=== PATIENT | male | born 1975 | race Caucasian/White ===

== ENCOUNTER 2022-04-17 11:26 | Outpatient (CLI) | payer OTHER, SELFPAY ==
[2022-04-17 09:52] LABS: Albumin* 4.5 g/dL (3.3-5.0); Chloride* 100 mmol/L (96-114); Potassium* 4.1 mmol/L (3.6-5.1); Sodium* 136 mmol/L (135-149)
[2022-04-17 09:54] LABS: Cholesterol* 166 mg/dL (90-199); Creatinine* 1.1 mg/dL (0.5-1.5); Estimated Glomerular Filt Rate 84 ml/min
[2022-04-17 09:55] LABS: Alanine Aminotransferase* 21 U/L (4-50); Alkaline Phosphatase* 71 U/L (40-150); Aspartate Amino Transferase* 24 U/L (12-35); Bilirubin Total* 0.9 mg/dL (0.1-1.5); Blood Urea Nitrogen* 16 mg/dL (5-24); Carbon Dioxide* 32 mmol/L (20-32); Glucose* 88 mg/dL (60-115); Total Protein* 6.9 g/dL (6.0-8.3); Triglycerides* 133 mg/dL (40-149)
[2022-04-17 09:56] LABS: Calcium* 9.3 mg/dL (8.4-10.6); HDL Cholesterol* 51 mg/dL (>=40); LDL Cholesterol Calculated 88 mg/dL (<100)
== END 2022-04-17 11:27 | disposition home or self-care (01) ==
PROVIDERS: PCP Family Medicine; Visit Provider Family Medicine
DX: Z00.00 Encounter for general adult medical examination without abnormal findings (principal); Z13.6 Encounter for screening for cardiovascular disorders
CPT/HCPCS: 80053; 80061

== ENCOUNTER 2022-09-13 08:49 | Emergency (ER) | payer BC, SELFPAY ==
[2022-09-13] VITALS (12 sets, daily range): BP systolic 105–115; BP diastolic 67–85; PULSE 55–68; RESP 18; TEMP 36.7; O2SAT 95–99; BMI 26.4
--- NOTE | 2022-09-13 08:52 | ED.ARRPALP ---
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 Patient states that he has really been increasing his activity over the last 6 weeks. He notes that over the last 2 weeks he has been experiencing episodes of a fluttering in his chest or skipped heartbeat associated with some lightheadedness. He states that this happened last night at he was he was trying to get up from the couch and at that time also had some tunnel vision and shortness of breath. He is still able to exercise in states that he has no chest pain when this occurs. He has not had any unusual weight loss or night sweats and no problems with thyroid in the past. He has not had any recent fever cough or cold. He has not taken any recent antihistamines. He does not smoke. Дмитрий notes that in his 20s he did have an episode of at tachycardia with arrhythmia while participating in an indoor triathlon. He states that prior to that he had taken an energy drink. He did not have any post event care. He does note an EKG that was normal prior to his service in the [employer]. Patient denies any recent calf pain tenderness history of DVT recent travel. Related Data Home Medications Medication Instructions Recorded Confirmed No Known Home Medications 04/07/22 09/13/22 Allergies Allergy/AdvReac Type Severity Reaction Status Date / Time No Known Drug Allergies Allergy Verified 09/13/22 09:05 Review of Systems Status of ROS: Reports: 10 or more systems reviewed and unremarkable except as noted in History and below Const: Denies: fever, chills, change in weight or night sweats Eyes: Reports: other (Tunneling of vision but not complete loss with events) ENMT: Denies: throat pain, neck pain or difficulty swallowing Cardio: Reports: palpitations and lightheadedness; Denies: chest pain, edema or swelling of feet/ankles GI: Denies: abdominal pain, nausea, vomiting or difficulty swallowing Musculo: Denies: back pain, neck pain, extremity pain or extremity swelling Neuro: Denies: headache, numbness in extremities or weakness in extremities PFSH [facility] Social History Smoking Status: Never smoker Do you use any of these nicotine containing products: None Second hand tobacco smoke exposure: No How often do you have a drink containing alcohol: 2-4 times a month How many standard drinks containing alcohol do you have on a typical day: 1 or 2 How often do you have six or more drinks on one occasion: Never AUDIT-C Alcohol total score: 2 Non-prescribed substance use: denies use Little interest or pleasure in doing things: several days Feeling down, depressed, or hopeless: not at all service: Yes Exam Narrative: Exam Narrative: Alert and oriented. Well-spoken gentleman mentating normally. Head is atraumatic normocephalic. Heart is with bradycardic rate and rhythm. I do not auscultate murmur, rub or clicks. Lungs are clear in all lung couch. No pain with percussion over CVA. Abdomen soft nontender. Lower extremities with no evidence of edema. Homans sign is negative. Calves are nontender. Const: Vital Signs, click to edit/add: Vital Signs - 24 hr 09/13/22 08:53 09/13/22 09:22 09/13/22 09:23 Temperature 98.1 F Pulse Rate 57 L 63 Pulse Rate [Right Pulse Oximeter] 55 L Respiratory Rate 18 Blood Pressure 112/83 Blood Pressure [Ri ght Upper Arm] 115/70 Pulse Oximetry 98 97 97 Oxygen Delivery Me thod Room Air 09/13/22 09:30 09/13/22 09:32 09/13/22 09:33 Temperature Pulse Rate 62 60 68 Pulse Rate [Right Pulse Oximeter] Respiratory Rate Blood Pressure 105/73 Blood Pressure [Ri ght Upper Arm] Pulse Oximetry 97 95 97 Oxygen Delivery Me thod 09/13/22 09:45 09/13/22 10:00 09/13/22 10:01 Temperature Pulse Rate 62 58 L 60 Pulse Rate [Right Pulse Oximeter] Respiratory Rate Blood Pressure 105/67 Blood Pressure [Ri ght Upper Arm] Pulse Oximetry 97 98 97 Oxygen Delivery Me thod 09/13/22 10:15 09/13/22 10:30 09/13/22 10:32 Temperature Pulse Rate 65 60 60 Pulse Rate [Right Pulse Oximeter] Respiratory Rate Blood Pressure 105/85 Blood Pressure [Ri ght Upper Arm] Pulse Oximetry 97 97 99 Oxygen Delivery Me thod Documenting provider has reviewed patient's vital signs: yes Course Course Hospital Course: Differential diagnosis includes but is not limited to thyroid disease, vitamin-D deficiency, PE, low magnesium, frequent PVC, arrhythmia. Patient will be on classroom monitor in have EKG accomplished. Will check labs to include CBC, basic, magnesium, TSH, D-dimer, vitamin-D, troponin. Will also include chest x-ray. Vital Signs Vital signs: Initial Vital Signs Temperature 98.1 F 09/13/22 08:53 Temperature Source Temporal Artery Scan 09/13/22 08:53 Pulse Rate 55 L 09/13/22 08:53 Respiratory Rate 18 09/13/22 08:53 Blood Pressure 115/70 09/13/22 08:53 Blood Pressure Mean 85 09/13/22 08:53 Blood Pressure Position Sitting 09/13/22 08:53 Pulse Oximetry 98 09/13/22 08:53 Oxygen Delivery Method Room Air 09/13/22 08:53 Vital Signs Temperature 98.1 F 09/13/22 08:53 Pulse Rate 55 L 09/13/22 08:53 Respiratory Rate 18 09/13/22 08:53 Blood Pressure 115/70 09/13/22 08:53 Pulse Oximetry 98 09/13/22 08:53 Oxygen Delivery Method Room Air 09/13/22 08:53 Temperature 98.1 F 09/13/22 08:53 Pulse Rate 60 09/13/22 10:32 Respiratory Rate 18 09/13/22 08:53 Blood Pressure 105/85 09/13/22 10:32 Pulse Oximetry 99 09/13/22 10:32 Oxygen Delivery Method Room Air 09/13/22 08:53 MDM - Arrhythmia/Palpitations MDM Narrative Medical decision making narrative: 1. Symptomatic PVC-patient had no evidence of arrhythmia or PVC during his time in the ER today. However, he is certainly describing a PVC issue over the last 2 weeks. I have ordered a 48 hour Holter monitor. Will have patient follow-up with Dr. Juvencio moss or his primary for at the end of this week. I think that it would be hernandez to also have him undergo a stress echo with his symptoms. He is very active and fortunately no evidence of acute coronary event today with a negative troponin and reassuring EKG. Further, magnesium is within normal limits as is TSH and vitamin-D. Chest x-ray without any unusual findings. At this time recommending follow-up with primary MD at the end of this week. Would also schedule for stress echo at some point. 2. Mild leukopenia-no recent illnesses. Would recommend recheck in 1 month 3. Disposition-home at this time. Return to the emergency room for onset of new symptoms or worsening symptoms. Medical Records Attestation: I reviewed the patient's medical records. Lab Data Attestation: I reviewed the patient's lab results. Labs: Lab Results 09/13/22 Range/Units 09:30 WBC 3.91 L (4.50-11.00) K/uL RBC 5.06 (4.30-5.90) m/uL Hgb 14.7 (13.5-17.5) gm/dL Hct 43.1 (37.0-53.0) % MCV 85 (80-100) fL MCH 29 (26-34) pg MCHC 34 (32-36) gm/dL RDW Coeff of Yulissa 12.6 (11.5-15.5) % Plt Count 198 (140-440) K/uL Neut % (Auto) 48.0 (42.0-72.0) % Lymph % (Auto) 38.1 (20-44) % Wharton % (Auto) 8.2 (0.0-11.0) % Eos % (Auto) 4.9 (0.0-7.0) % Baso % (Auto) 0.5 (0.0-3.0) % Neut # (Auto) 1.90 (1.7-7.0) K/uL Lymph # (Auto) 1.50 (0.90-2.90) K/uL Wharton # (Auto) 0.30 (0.00-0.90) K/UL Eos # (Auto) 0.20 (0.00-0.50) K/uL Baso # (Auto) 0.00 (0.00-0.30) K/uL D-Dimer Quant (PE/DVT) < 0.27 (0.00-0.50) ug/ml Sodium 137 (135-149) mmol/L Potassium 4.1 (3.6-5.1) mmol/L Chloride 106 (96-114) mmol/L Carbon Dioxide 27 (20-32) mmol/L BUN 22 (5-24) mg/dL Creatinine 1.0 (0.5-1.5) mg/dL Estimated Creat Clear 104.31 Estimated GFR 94 ml/min Glucose 92 (60-115) mg/dL Calcium 8.8 (8.4-10.6) mg/dL Magnesium 2.0 (1.5-2.6) mg/dL Troponin I < 0.01 L (0.01-0.04) ng/mL C-Reactive Protein 0.5 (0.5-1.0) mg/dL 25-OH Vitamin D Total 47 (30-80) ng/mL TSH 0.995 (0.270-4.200) uIU/mL Imaging Data Chest x-ray: Attestation: I have reviewed the pertinent imaging results. My impression: No acute infiltrates or evidence of a widened mediastinum Radiologist's impression: Cardiovasculature and mediastinum:? Heart size and vasculature are normal in caliber and appearance.? Lungs and pleural spaces:? Lungs are clear.? No sign of infiltrate or mass. ?No sign of pleural effusion.? No pneumothorax.? Bones and soft tissues:? No significant findings. IMPRESSION: No acute or significant findings. ECG Data Attestation: I personally reviewed and interpreted this ECG as follows: ECG interpretation date: 09/13/22 Interpretation: Sinus rhythm at a rate of 60. No acute ST or T-wave changes are noted. Normal QT and OR interval. Discharge Plan Discharge Clinical Impression: Symptomatic PVCs Patient Disposition: Home, Self-Care Condition: Unchanged Additional Instructions: 1. Holter monitor for 48 hours. Follow-up with Dr. Luis. 2. Return to the emergency room for worsening symptoms Prescriptions: No Action No Known Home Medications Follow Up/Referrals: Gerald Nails MD [Primary Care Provider] - Stand Alone Forms: [employer] Info Instructions
--- NOTE | 2022-09-13 09:16 | CRLHL7_ITS ---
For Patients: As a result of the Century Cures Act, medical imaging exams and procedure reports are released immediately into your electronic medical record. You may view this report before your referring provider. If you have questions, please contact your health care provider. INDICATION: Palpitations. TECHNIQUE: Chest 1 views. COMPARISON: None. FINDINGS: Cardiovasculature and mediastinum: Heart size and vasculature are normal in caliber and appearance. Lungs and pleural spaces: Lungs are clear. No sign of infiltrate or mass. No sign of pleural effusion. No pneumothorax. Bones and soft tissues: No significant findings. IMPRESSION: No acute or significant findings. Dictated by Jorge Grady MD @ 09/13/2022 10:01:03 AM (Electronically Signed)
[2022-09-13 09:41] LABS: Basophils Percent Auto 0.5 % (0.0-3.0); Eosinophils Percent Auto 4.9 % (0.0-7.0); Hematocrit 43.1 % (37.0-53.0); Hemoglobin* 14.7 gm/dL (13.5-17.5); Immature Granulocytes Pct Auto 0.3 %; Lymphocytes Percent Auto 38.1 % (20-44); Mean Corpuscular HGB Conc 34 gm/dL (32-36); Mean Corpuscular Hemoglobin 29 pg (26-34); Mean Corpuscular Volume 85 fL (80-100); Monocytes Percent Auto 8.2 % (0.0-11.0); Platelet Count* 198 K/uL (140-440); RDW Coefficient of Variation % 12.6 % (11.5-15.5); Red Blood Count 5.06 m/uL (4.30-5.90); White Blood Count* 3.91 K/uL (4.50-11.00)
[2022-09-13 09:43] LABS: Slide Review Reflex No
[2022-09-13 09:55] LABS: Chloride* 106 mmol/L (96-114)
[2022-09-13 09:56] LABS: Potassium* 4.1 mmol/L (3.6-5.1); Sodium* 137 mmol/L (135-149)
[2022-09-13 09:58] LABS: Est. Creatinine Clearance* 104.31; Estimated Glomerular Filt Rate 94 ml/min
[2022-09-13 09:59] LABS: Blood Urea Nitrogen* 22 mg/dL (5-24); Carbon Dioxide* 27 mmol/L (20-32)
[2022-09-13 10:00] LABS: Calcium* 8.8 mg/dL (8.4-10.6); Glucose* 92 mg/dL (60-115)
[2022-09-13 10:02] LABS: C Reactive Protein* 0.5 mg/dL (0.5-1.0)
[2022-09-13 10:08] LABS: D Dimer Quantitative* < 0.27 ug/ml (0.00-0.50)
[2022-09-13 10:15] LABS: Troponin I* < 0.01 ng/mL (0.01-0.04)
[2022-09-13 10:17] LABS: Vitamin D 25 Hydroxy* 47 ng/mL (30-80)
[2022-09-13 10:30] LABS: TSH With Reflex to FT4* 0.995 uIU/mL (0.270-4.200)
== END 2022-09-13 10:54 | disposition home or self-care (01) ==
LOC: ED 09:52
PROVIDERS: Emergency Provider Family Medicine; PCP Family Medicine
DX: I49.3 Ventricular premature depolarization (principal); D72.819 Decreased white blood cell count, unspecified
CPT/HCPCS: 36415; 71045; 80048; 82306; 83735; 84443; 84484; 85025; 85379; 86140; 93005; 93225; 93226; 99284; 99285

== ENCOUNTER 2022-10-08 13:57 | Outpatient (CLI) | payer BC, SELFPAY | END 2022-10-08 13:58 | disposition home or self-care (01) | LOC: RAD 13:58 | PROVIDERS: PCP Family Medicine; Visit Provider Internal Medicine | DX: I49.3 Ventricular premature depolarization (principal) | CPT/HCPCS: 93306 ==

== ENCOUNTER 2023-11-25 12:39 | Outpatient (CLI) | payer BC, SELFPAY ==
--- OUTSIDE RECORDS SUMMARY | 2023-11-25 12:43 | XMS_ITS | Clinical Summary ---
Author Organization [facility] Address [place], [place] [address] Care Team Providers [employer] Person Name Role Phone Gerald Nails MD Primary Care Provider [phone] Allergies No known active allergies Medications Medication Sig Dispensed Refills Start Date End Date Status meloxicam (MOBIC) 7.5 mg tablet TK 1 T PO D 2 04/27/2018 Active azithromycin (Zithromax Z-Jovanny) 250 mg tabletIndications:Bro nchitis Take 500 mg today and then 250 mg days 2-5 6 Tablet 10/30/2021 Active predniSONE (DELTASONE) 20 mg tabletIndications:Bro nchitis Take 2 tablets Or 40 mg daily 10 Tablet 10/30/2021 Active promethazine-codeine (PHENERGAN WITH CODEINE) 6.25-10 mg/5 mL syrupIndications:Bron chitis Take 5 mL by mouth every 6 hours if needed for Cough. 118 mL 10/30/2021 Active Active Problems Problem Noted Date Diagnosed Date Prostate nodule 05/25/2018 Prostate nodule 05/25/2018 Social History Tobacco Use Types Packs/Day Years Used Date Smoking Tobacco: Never Smokeless Tobacco: Never Tobacco Cessation:Counseling Given: Yes Alcohol Use Standard Drinks/Week Comments Yes 0 (1 standard drink = 0.6 oz pur e alcohol) Social Connections Answer Date Recorded Frequency of Communication with Friends and Fami ly Not on file 10/30/2021 Sex and Gender Information Value Date Recorded Sex Assigned at Not on file Gender Identity Not on file Sexual Orientation Not on file Obstetrics History Last Filed Vital Signs Vital Sign Reading Time Taken Comments Blood Pressure 130/77 10/30/2021 7:39 AM CDT Pulse 62 10/30/2021 7:39 AM CDT Temperature - - Respiratory Rate 16 05/17/2019 1:52 PM INTAKE COORDINATOR Oxygen Saturation 98% 10/30/2021 7:3 9 AM CDT Inhaled Oxygen Concentration - - Weight 97.7 kg (215 lb 6.4 oz) 05/17/2019 1:52 PM INTAKE COORDINATOR Pt weighed with shoes on. Height - - Body Mass Index - - Plan of Treatment Upcoming Encounters Date Type Department Care Team (Late st Contact Info) Description 11/25/2023 1:00 PM CDT Ancillary Procedure [facility] [address] [facility] [place] [address] Health Maintenance Due Date Last Done Comments Tdap 1987 Depression screening for age 12+ 1988 HIV for age 15-65 1991 BMI (ht and wt on same day) for age 18+ 1994 Hepatitis C screening for ag e 18-79 1994 Tetanus booster 1996 Colonoscopy through age 75 2021 Lipids for age 45-75 2021 COVID-19 vaccine series (2022-24 season) 2023 Influenza for age 9-49 02/13/2024 Pneumococcal series for age 6-64 Aged Out No longer eligible based on patient's age to complete this topic Care Teams [employer] Person Relationship Specialty Start Date End Date Gerald Nails MD [address] [id number] PCP - General 05/25/18
== END 2023-11-25 12:40 | disposition home or self-care (01) ==
LOC: RAD 12:41
PROVIDERS: PCP Family Medicine; Visit Provider Internal Medicine
DX: I47.10 Supraventricular tachycardia, unspecified (principal); I35.1 Nonrheumatic aortic (valve) insufficiency; I34.0 Nonrheumatic mitral (valve) insufficiency
CPT/HCPCS: 93306

== ENCOUNTER 2025-02-20 10:41 | Outpatient (CLI) | payer OTHER, SELFPAY | END 2025-02-20 10:42 | disposition home or self-care (01) | PROVIDERS: PCP Family Medicine; Visit Provider Internal Medicine | DX: Z13.9 Encounter for screening, unspecified (principal) | CPT/HCPCS: 80053; 80061; G0103 ==